=== PATIENT | female | born 1990 | race Caucasian/White ===

== ENCOUNTER 2016-09-01 09:46 | Emergency (ER) | payer MEDICAID ==
[2016-09-01 10:28] VITALS: BMI 28.8
[2016-09-01 11:20] LABS: RBC URINE 1 /hpf (0-3); URINE BACTERIA OCC (<OCC); URINE BILIRUBIN NEGATIVE (NEGATIVE); URINE BLOOD NEGATIVE (NEGATIVE); URINE COLOR Yellow (YELLOW); URINE GLUCOSE (UA) NORMAL (Normal); URINE KETONE NEGATIVE (NEGATIVE); URINE LEUKOCYTE ESTERASE 1+ Leu/uL (Negative); URINE PROTEIN NEGATIVE (NEGATIVE); URINE UROBILINOGEN NORMAL mg/dL (0.2-1.0); WBC URINE 4 /hpf (0-5)
[2016-09-01] MEDS ORDERED: Lactated Ringer's 1,000 ML IV ONE (11:39)
[2016-09-01] MEDS ORDERED: ceFAZolin IV 2 gm in Dextrose 50 ML IVPB SCH (12:00)
--- NOTE | 2016-09-01 12:43 | OBHP ---
Datetime: 09/01/2016 11:40 IP Adm Impression: , intrauterine ; No Active Labor IP Adm Impression Other: uti IP Admit Plan: Discharge home Admit Comment, IP Provider: chief complaint- cramping; s/p fall yesterday at 1.30 pm HPI 26 y/o at 35.3 wga with c/o cramping .states she lost her mucous plug 2 days ago.Patient states that she fell on her side yesterday at 1 ,30 ama and noticed some pain in her leg.Denies any t rauma to abdomen.Denies any vaginal bleeding.States that the cramps she has had for 2 days and this d id not change after [facility] course care with dr santiago PMH denies PSH denies OBGYN HX SOCIAL HX denies tobacco,alcohol or illicit drug use Exam see exam section A/P 26 y/o at 35.3 wga with c/o cramping and s/p fall -ua -IV fluids -monitor closely 12.40 pm UA positive for le and bacteria Patient given 2 grams of ancef iv patient reports feeling better now NST reactive A/P s/p fall, UTI -Discharge home -script for macrobid given -follow up on monday with dr santiago Pelvic Type - PN: Adequate Extremities - PN: Normal Abdomen - PN: Normal Back - PN: Normal Breast - PN: Normal Lungs - PN: Normal Heart - PN: Normal Neurologic - PN: Normal General - PN: Normal Contraction Comments Provider: none Gestation - Est Wks by US: 35.3 EGA AdmitDate IP: 35.3 Vital Signs Provider: Reviewed; Within Normal Limits IP Chief Complaint: Uterine contractions FHR Category Provider Fetus A: Category I Dilatation, Provider: 0 Effacement, Provider: thick Station, Provider: high Genitourinary Exam: Normal DTRs - PN: Normal
== END 2016-09-01 12:48 | disposition home or self-care (01) ==
LOC: C.EROB 09:46
DX: O23.43 Unspecified infection of urinary tract in pregnancy, third trimester (principal); Z3A.35 35 weeks gestation of pregnancy